=== PATIENT | female | born 1945 | race Caucasian/White ===

== ENCOUNTER 2017-05-24 07:05 | Emergency (ER) | payer OTHER, MEDICARE ==
[~2017-05-24] VITALS: Ht 157.5 cm; Wt 65.5 kg
[~2017-05-24 07:05] MED LIST: ASPIR-LOW81 MG PO; CLONAZEPAM0.5 MG PO; COQ-10100 MG PO; Ecotrin PO; FISH OIL 1,0001 EAC7 PO; FLONASE ALLERG9.9 ML BOTH NARES; LEVAQUIN750 MG PO; LIPITOR10 MG PO; SERTRALINE HCL100 MG PO; SIMVASTATIN10 M1 PO; Toprol XL PO; VITAMIN D31000 UNIT PO
[2017-05-24 07:50] LABS: HEMATOCRIT 40.7 % (36.0-46.0); MCH 30.3 PG (29.0-34.0); MCHC 33.2 G/DL (30.0-36.0); MCV 91.5 FL (83-99); MEAN PLAT.VOLUME 10.6 uM^3 (9.5-12.4); PLATELET COUNT 242 K/uL (156-360); RBC DIS.WIDTH-CV 14.7 % (11.8-14.6); RBC DIS.WIDTH-SD 50.2 % (39-53); RED BLOOD COUNT 4.45 M/uL (3.80-5.20); WHITE BLOOD COUNT 8.4 K/uL (4.1-10.2)
[2017-05-24 08:04] LABS: CHLORIDE 111 mEq/L (99-109); POTASSIUM 3.7 mEq/L (3.7-5.4); SODIUM 141 mEq/L (136-147)
[2017-05-24 08:06] LABS: GLUCOSE 108 mg/dL (70-99)
[2017-05-24 08:07] LABS: ANION GAP 12 MEQ/L (2-14)
[2017-05-24 08:10] LABS: GFR ESTIMATE (CALCULATED) 58 mL/min/
[2017-05-24 08:11] LABS: UREA NITROGEN (BUN) 22 mg/dL (9-23)
[2017-05-24 10:19] LABS: C DIFF TOXIN NEGATIVE (NEGATIVE)
[2017-05-24 10:21] LABS: PROBE CHECK PASS; SPECIMEN PROCESSING CONTROL PASS
[2017-05-24] MEDS ORDERED: BENTYL20 MG PO (10:45)
[2017-05-24 11:13] VITALS: BP 100/81
[2017-05-24 11:58] LABS: INTERNAL CONTROL VALID? YES
== END 2017-05-24 11:48 | disposition home or self-care (01) ==
LOC: EME 07:05
PROVIDERS: Physician Assistant
DX: R19.7 Diarrhea, unspecified (principal); R11.10 Vomiting, unspecified; K21.9 Gastro-esophageal reflux disease without esophagitis; E78.5 Hyperlipidemia, unspecified; F41.9 Anxiety disorder, unspecified; F32.9 Major depressive disorder, single episode, unspecified; F17.200 Nicotine dependence, unspecified, uncomplicated; Z79.82 Long term (current) use of aspirin
CPT/HCPCS: 80048; 83630; 85027; 87493; 87506; 99281; 99284

== ENCOUNTER 2017-09-29 09:47 | Emergency (ER) | payer OTHER, MEDICARE ==
[~2017-09-29] VITALS: Ht 157.5 cm; Wt 66.6 kg
[~2017-09-29 09:47] MED LIST changes: +BENTYL20 MG PO
[2017-09-29 11:27] LABS: APPEARANCE SL.HAZY ((CLEAR)); BILIRUBIN NEGATIVE; BLOOD SMALL; COLOR YELLOW ((YELLOW)); GLUCOSE (STRIP) NEGATIVE; KETONES NEGATIVE; LEUKOCYTES NEGATIVE; NITRITE NEGATIVE; PROTEIN (STRIP) NEGATIVE; SPECIFIC GRAVITY 1.012 (1.000-1.030); UROBILINOGEN 0.2 MG/DL (0.2-1.0)
[2017-09-29 11:29] LABS: BACTERIA RARE /HPF; EPITHELIAL CELLS 1+ /HPF; MUCUS TRACE /LPF; RED BLOOD CELLS 0-5 /HPF (0-5); WHITE BLOOD CELLS 0-5 /HPF (0-5)
[2017-09-29 11:35] LABS: BASOPHIL (%) 1.4 % (0-1); BASOPHIL COUNT 0.1 K/uL (0-0.1); EOSINOPHIL (%) 2.2 % (0-5); EOSINOPHIL COUNT 0.2 K/uL (0-0.3); HEMATOCRIT 40.3 % (36.0-46.0); HEMOGLOBIN 13.8 G/DL (11.9-15.5); IMMATURE GRANULOCYTE (%) 0.3 % (0.0-0.7); LYMPHOCYTE (%) 35.1 % (15-42); LYMPHOCYTE COUNT 2.8 K/uL (1.0-2.8); MCH 29.5 PG (29.0-34.0); MCHC 34.2 G/DL (30.0-36.0); MCV 86.1 FL (83-99); MONOCYTE (%) 5.6 % (3-12); MONOCYTE COUNT 0.4 K/uL (0-0.8); NEUTROPHIL (%) 55.4 % (45-76); NEUTROPHIL COUNT 4.4 K/uL (1.8-6.4); PLATELET COUNT 212 K/uL (156-360); RBC DIS.WIDTH-CV 13.9 % (11.8-14.6); RBC DIS.WIDTH-SD 43.8 % (39-53); RED BLOOD COUNT 4.68 M/uL (3.80-5.20); WHITE BLOOD COUNT 7.8 K/uL (4.1-10.2)
[2017-09-29 11:43] LABS: CHLORIDE 103 mEq/L (99-109); POTASSIUM 3.1 mEq/L (3.7-5.4); SODIUM 139 mEq/L (136-147)
[2017-09-29 11:44] LABS: GLUCOSE 109 mg/dL (70-99)
[2017-09-29 11:48] LABS: CREATININE 0.8 mg/dL (0.6-1.3); GFR ESTIMATE (CALCULATED) > 59 mL/min/
[2017-09-29 11:49] LABS: UREA NITROGEN (BUN) 19 mg/dL (9-23)
[2017-09-29] MEDS ORDERED: TYLENOL WITH C1 EACH PO (14:13)
[2017-09-29 15:04] VITALS: BP 132/60
== END 2017-09-29 15:05 | disposition home or self-care (01) ==
LOC: EME 09:47
PROVIDERS: Emergency Medicine
DX: M54.5 Low back pain (principal); M79.1 Myalgia; N20.0 Calculus of kidney; K57.90 Diverticulosis of intestine, part unspecified, without perforation or abscess without bleeding; N28.1 Cyst of kidney, acquired; I10 Essential (primary) hypertension; E78.5 Hyperlipidemia, unspecified; K21.9 Gastro-esophageal reflux disease without esophagitis; F41.9 Anxiety disorder, unspecified; F17.200 Nicotine dependence, unspecified, uncomplicated; Z79.82 Long term (current) use of aspirin; Z90.710 Acquired absence of both cervix and uterus
CPT/HCPCS: 74176; 80048; 81003; 85025; 93970; 99281; 99284